=== PATIENT | female | born 1985 | race Caucasian/White ===

== ENCOUNTER 2019-04-30 09:45 | Inpatient (IN) ==
[2019-04-30] MEDS ORDERED: RINGER'S SOLUTION,LACTATED 1,000 ML IV ONE (13:17)
[2019-04-30] MEDS ORDERED: LIDOCAINE HCL 50 ML VIAL PERI PRN (13:17)
[2019-04-30] MEDS ORDERED: BUTORPHANOL TARTRATE 2 MG/ML VIAL IV PRN ×2 (13:17)
[2019-04-30] MEDS ORDERED: OXYTOCIN/DEXTROSE 5%-WATER 30 UNITS/500 ML BAG IV ONE ×2 (13:17→23:09)
[2019-04-30] MEDS ORDERED: ONDANSETRON 4 MG TAB.RAPDIS PO PRN (13:17)
[2019-04-30 14:21] LABS: Cocaine Ur Negative (NEGATIVE); Urine Barbiturate Negative (NEGATIVE); Urine Benzodiazepines Negative (NEGATIVE); Urine Opiates Negative (NEGATIVE); Urine PCP Negative (NEGATIVE); Urine THC Negative (NEGATIVE)
[2019-04-30] MEDS: RINGER'S SOLUTION,LACTATED 1,000 ML IV PRN ×2 (14:26→19:07)
--- NOTE | 2019-04-30 16:26 | HP ---
Chief Complaint - Chief Complaint Date of Service: 04/30/19 Time of Service: 16:13 Chief Complaint: Induction of labor History of Present Illness: 34 year old at 38w 2d who presents to labor and delivery for a medical induction of labor due to IUGR with normal umbilical artery dopplers. She is having regular contractions on pitocin. She denies vaginal bleeding or loss of fluid. Fetus is active. Medical History (Last Reviewed 04/30/19 @ 16:17 by Amina Espinoza MD) Anemia Onset Date: 02/06/19 w/ Anxiety Onset Date: Unknown Depression Onset Date: ~2002 age 18, not chronic; situational Surgical History: Surgical History (Last Reviewed 04/30/19 @ 16:17 by Amina Espinoza MD) Hx of hand surgery Onset Date: ~2008 right hand fracture Family History: Family History (Last Reviewed 04/30/19 @ 16:17 by Amina Espinoza MD) Mother Hepatitis C virus Father Depression Social History: (Last Reviewed 04/30/19 @ 16:17 by Amina Espinoza MD) Social History: Marital status: Single current occupational status: employed current occupation: [employer]: Yes Tobacco: Smoking Status: Current every day smoker tobacco type: cigarettes Smoking cigarettes per day: 10 Alcohol: alcohol intake: never Substance Use: substance use type: does not use Dietary Habits: caffeine: Yes Review Of Systems (GEN) - Review of Systems Generalized/Overall Review: Present: No Symptoms Reported Misc: All systems neg except as marked Allergies/Adverse Reactions: Allergies Allergy/AdvReac Type Severity Reaction Status Date / Time No Known Allergies Allergy Verified 04/30/19 08:56 Home Medications: HOME MEDICATIONS acetaminophen 500 mg tablet 500 mg PO Q6H PRN 11/28/18 [Last Taken Unknown] ferrous sulfate 325 mg (65 mg iron) tablet 325 mg PO DAILY #30 tab 02/06/19 [Last Taken Unknown] Vits96/Iron Fum/Folic [ S] 1 tab PO DAILY 04/30/19 [Last Taken Unknown] Exam - Exam Vital Signs: Vital Signs - Last Taken Temp 36.3 C 04/30/19 14:03 Pulse 102 H 04/30/19 14:03 Resp 18 04/30/19 14:03 BP 115/66 04/30/19 14:03 Pulse Ox 99 04/30/19 14:03 Constitutional: Present: Alert, Oriented x3, Cooperative, No distress ENT Exam: Present: hearing grossly normal Eye Exam: bilateral eye: normal inspection Neck: Present: normal inspection Back Exam: Present: normal inspection, no CVA tenderness, no vertebral tenderness Breasts: Present: Exam deferred Respiratory: Present: lungs clear, normal breath sounds Cardiovascular/Chest: Present: regular rate, rhythm Abdomen: Present: soft, nontender, nondistended /Rectal: Present: Other - cvx 1.5/50/-2 AROM for clear fluid Extremity: Present: non-tender, no calf tenderness Skin Exam: Present: normal color, warm/dry, no cyanosis Appearance: Present: appropriate appearance, appropriate insight Eye contact: Present: cooperative, good eye contact, normal speech Thoughts: Present: normal thought pattern Diagnostic Studies: Laboratory Results Urine Opiates Screen Negative (NEGATIVE) 04/30/19 14:11 Barbiturate Screen Negative (NEGATIVE) 04/30/19 14:11 Ur Phencyclidine Scrn Negative (NEGATIVE) 04/30/19 14:11 Urine Amphetamine Negative (NEGATIVE) 04/30/19 14:11 U Benzodiazepines Scrn Negative (NEGATIVE) 04/30/19 14:11 Urine Cocaine Screen Negative (NEGATIVE) 04/30/19 14:11 Urine Marijuana (THC) Negative (NEGATIVE) 04/30/19 14:11 Blood Type O Positive 04/30/19 14:00 Antibody Screen Negative 04/30/19 14:00 Assessment/Plan - Narrative Narrative: 34 year old at 38w 2d 1. Medical IOL for IUGR: Pitocin IOL, AROM 2. GBS negative: prophylaxis not indicated 3. Smoker: likely explains the IUGR 4. Anemia: on iron - Assessment/Plan (1) Anemia Problem: Acute Qualifiers: Anemia type: iron deficiency Iron deficiency anemia type: other iron deficiency Qualified Code(s): D50.8 - Other iron deficiency anemias (2) IUGR (intrauterine growth restriction) Problem: Acute (3) Smoker Problem: Acute
[2019-04-30] MEDS ORDERED: NALOXONE HCL 1 MG/1 ML SYRG IV PRN (18:18)
[2019-04-30] MEDS ORDERED: ONDANSETRON HCL/PF 2 MG/ML VIAL IV PRN (18:18)
[2019-04-30] MEDS ORDERED: BUPIVACAINE HCL/0.9 % NACL/PF 250 ML EP PRN (18:18)
[2019-04-30] MEDS ORDERED: fentaNYL CITRATE/PF 50 MCG/ML AMPUL IT SCH (18:30)
--- NOTE | 2019-04-30 19:37 | ANES ---
Anesthesia Pre Procedure Eval Vitals/Labs: Last Vital Signs Temp 36.3 C 04/30/19 14:03 Pulse 102 H 04/30/19 14:03 Resp 18 04/30/19 14:03 BP 115/66 04/30/19 14:03 Pulse Ox 99 04/30/19 14:03 HOME MEDICATIONS acetaminophen 500 mg tablet 500 mg PO Q6H PRN 11/28/18 [Last Taken Unknown] ferrous sulfate 325 mg (65 mg iron) tablet 325 mg PO DAILY #30 tab 02/06/19 [Last Taken Unknown] Vits96/Iron Fum/Folic [ S] 1 tab PO DAILY 04/30/19 [Last Taken Unknown] Allergies/Adverse Reactions: Allergies Allergy/AdvReac Type Severity Reaction Status Date / Time No Known Allergies Allergy Verified 04/30/19 08:56 - Planned Procedure Planned Procedure: ADMIT FOR INDUCTION Medication List Reviewed:: Yes Allergies Verified: Yes Medical History (Last Reviewed 04/30/19 @ 19:36 by Mingo Galeano CRNA) Anemia Onset Date: 02/06/19 w/ Anxiety Onset Date: Unknown Depression Onset Date: ~2002 age 18, not chronic; situational Surgical History (Last Reviewed 04/30/19 @ 19:37 by Mingo Galeano CRNA) Hx of hand surgery Onset Date: ~2008 right hand fracture Family History (Last Reviewed 04/30/19 @ 19:37 by Mingo Galeano CRNA) Mother Hepatitis C virus Father Depression - Family Anesthesia History Family History:: no untoward family reactions to anesthesia, no familial bleeding tendencies, no family history of clotting disorders, no family history of premature - Airway/Neck/Teeth Within Normal Limits:: Yes Neck Exam: full range of motion Mallampatti Score: 2 Thyromental (T-M) distance: > 6 cm Mandibulo Hyoid distance: > 3 cm - Respiratory Respiratory Physical: lungs clear Sleep Apnea currently treated: No Sleep Apnea by current assessment: No - Cardiovascular Tolerate Activity: Fair Heart Sounds: S1 & S2, Regular - Gastrointestinal NPO since: this pm - Anesthesia Assessment and Plan ASA Class: PS, II, E Anesthesia Type Plan: Epidural - CSE for labor epidural
--- NOTE | 2019-04-30 19:57 | ANES ---
Post Anesthesia Discharge - Transfer of Care Transfer of Care handoff given to nurse: Yes - Discharge from PACU Discharge from PACU when meets criteria: Yes - Comfortable post CSE.
--- NOTE | 2019-04-30 19:58 | ANES ---
Anesthesia Procedure Note Procedure Note: ANESTHESIA PROCEDURE NOTE Date of Procedure: [04/30/2019 Time of procedure: 7:35 PM. Performed by: JOSE M Bertrand CRNA, MSN Ditcher Operator: Marielena Hearn RN. Preprocedure diagnosis: Active labor, labor pain. Post procedure diagnosis: Same. Procedure:Epidural for labor analgesia L3-4. Indications: Labor pain. Findings: See below. Details of the procedure: The patient was placed on the side of the bed in sitting positionand prepped with DuraPrep then draped in a sterile fashion. Lidocaine 1% was infiltrated to the skin and subcutaneous tissues at the level of the L3-4 interspace. An 18-gauge Touhy needle was used to approach the epidural space with loss of resistance technique. Once loss of resistance was achieved a 27-gauge spinal needle was passed through the epidural needle and CSF was contacted. After CSF returned, 20 mcg of fentanyl was injected in the spinal needle was removed the epidural catheter was then threaded approximately 4 cm in the epidural needle was removed. The catheter was taped in place and after careful aspiration 3 mL of 1.5% lidocaine with 1-200,000 epinephrine was injected without change in maternal heart rate or sensorium. . EBL: Minimal. Fluids: N/A. Specimen: N/A. Post procedure condition: The patient tolerated the procedure well with good relief. No complications were noted. Thank you for this consultation. Mingo Galeano CRNA, JOSE M, MSN
--- NOTE | 2019-04-30 20:02 | ANES ---
Post Anesthesia Assessment - Vital Signs Vitals: Last Vital Signs Temp 36.3 C 04/30/19 14:03 Pulse 102 H 04/30/19 14:03 Resp 18 04/30/19 14:03 BP 115/66 04/30/19 14:03 Pulse Ox 99 04/30/19 14:03 Airway Patency: Normal - Mental Status Level Of Consciousness: Awake, Alert, Appropriate - Pain Level Pain Score: 0 - N/V Assessment Nausea/Vomiting Presence: None Dehydration:: No
--- NOTE | 2019-04-30 23:08 | OR ---
Operative Report - Dictated Report Narrative: Date of delivery: 04/30/2019 Time of delivery: 2243 grams Gender: female weight: 2571 grams APGARS: 10/30 Procedure: Description of the procedure: 34 year old at 38w 2d who underwent medical induction of labor due to IUGR with normal dopplers. She was induced with pitocin and AROM. She progressed to complete dilation. She delivered a viable female infant in MADELINE presentation. Cord clamping was delayed for 60 seconds. The cord was clamped and cut. The placenta was delivered by expression and appeared intact. A first degree perineal laceration was repaired in the usual fashion using 2-0 vicryl. EBL: 50 mL Complications: none Specimens: placenta History for Definition: * The number of deliveries resulting in a live the patient experienced prior to current hospitalization * The previous delivery of live twins or any live multiple gestation is considered one live event. *If primagravida or nulliparous is documented select zero for the number of previous live births. Live Events: 1
[2019-04-30] MEDS ORDERED: BENZOCAINE/MENTHOL 81 SPRAY CAN TP PRN (23:09)
[2019-04-30] MEDS ORDERED: SENNOSIDES 8.6 MG TABLET PO PRN (23:09)
[2019-04-30] MEDS ORDERED: diphenhydrAMINE HCL 25 MG CAPSULE PO PRN (23:09)
[2019-04-30] MEDS ORDERED: HYDROCORTISONE 30 APPL TUBE TP PRN (23:09)
[2019-04-30] MEDS ORDERED: BISACODYL 10 MG SUPP.RECT RC PRN (23:09)
[2019-04-30] MEDS ORDERED: GLYCERIN/WITCH HAZEL LEAF 40 APPL BOX TP PRN (23:09)
[2019-05-01] MEDS: IBUPROFEN 800 MG TABLET PO PRN ×3 (03:01→23:08)
[2019-05-01] MEDS: oxyCODONE HCL/ACETAMINOPHEN 1 TAB TABLET PO PRN ×3 (03:56→21:18)
[2019-05-01] MEDS: DOCUSATE SODIUM 100 MG CAPSULE PO SCH ×2 (08:09→21:18)
--- NOTE | 2019-05-01 08:59 | PN ---
Subjective - Date and Time Seen Date: 05/01/19 Time: 08:58 Subjective Narrative: Patient without complaints Objective Objective Narrative: See vitals signs - Review of Systems Generalized/Overall Review: Reports: No Symptoms Reported Misc: All systems neg except as marked - Vitals Vitals: Last Vital Signs Temp 36.5 C 05/01/19 06:25 Pulse 62 05/01/19 06:25 Resp 18 05/01/19 06:25 BP 111/63 05/01/19 06:25 Pulse Ox 97 05/01/19 06:25 - Exam Constitutional: Present: Alert, Oriented x3, Cooperative, No distress Abdomen: Present: soft, nontender, nondistended - fundus is firm Extremity: Present: non-tender, no calf tenderness Skin Exam: Present: normal color, warm/dry, no cyanosis Appearance: Present: appropriate appearance Eye contact: Present: cooperative Thoughts: Present: normal thought pattern Cauti Physician Documentation - Urinary Catheter Management Urethral (Orellana) Urethral Indwelling: No Date of Insertion: 04/30/19 Time of Insertion: 20:35 Date of Removal: 04/30/19 Time of Removal: 22:40 Assessment/Plan Plan Narrative: PPD 1 s/p Doing well Discharge tomorrow - Problems/Diagnosis (1) Anemia Problem: Acute Qualifiers: Anemia type: iron deficiency Iron deficiency anemia type: other iron deficiency Qualified Code(s): D50.8 - Other iron deficiency anemias (2) IUGR (intrauterine growth restriction) Problem: Acute (3) Smoker Problem: Acute
[2019-05-02] MEDS: oxyCODONE HCL/ACETAMINOPHEN 1 TAB TABLET PO PRN (04:38)
[2019-05-02 07:59] VITALS: BP 110/71
--- NOTE | 2019-05-02 08:45 | PN ---
Subjective - Date and Time Seen Date: 05/02/19 Time: 08:45 Subjective Narrative: Patient without complaints Objective Objective Narrative: See vitals signs - Review of Systems Generalized/Overall Review: Reports: No Symptoms Reported Misc: All systems neg except as marked - Vitals Vitals: Last Vital Signs Temp 36.9 C 05/02/19 07:25 Pulse 74 05/02/19 07:25 Resp 18 05/02/19 07:25 BP 110/71 05/02/19 07:25 Pulse Ox 98 05/02/19 07:25 - Exam Constitutional: Present: Alert, Oriented x3, Cooperative, No distress Abdomen: Present: soft, nontender, nondistended Extremity: Present: non-tender, no calf tenderness Skin Exam: Present: normal color, warm/dry, no cyanosis Appearance: Present: appropriate appearance Eye contact: Present: cooperative Thoughts: Present: normal thought pattern Cauti Physician Documentation - Urinary Catheter Management Urethral (Orellana) Urethral Indwelling: No Date of Insertion: 04/30/19 Time of Insertion: 20:35 Date of Removal: 04/30/19 Time of Removal: 22:40 Assessment/Plan Plan Narrative: PPD 2 s/p Doing well Discharge today Discharge instructions given Follow-up in 4 weeks or sooner for any other concerns - Problems/Diagnosis (1) Anemia Problem: Acute Qualifiers: Anemia type: iron deficiency Iron deficiency anemia type: other iron deficiency Qualified Code(s): D50.8 - Other iron deficiency anemias (2) IUGR (intrauterine growth restriction) Problem: Acute (3) Smoker Problem: Acute
[2019-05-02] MEDS: DOCUSATE SODIUM 100 MG CAPSULE PO SCH (08:52)
== END 2019-05-02 14:00 | disposition home or self-care (01) | DRG 807 ==
LOC: RAD 09:45 → OB 13:10
PROVIDERS: ADMIT Obstetrics & Gynecology; ATTEND Obstetrics & Gynecology
DX: Z3A.38 38 weeks gestation of pregnancy; F17.210 Nicotine dependence, cigarettes, uncomplicated; O70.0 First degree perineal laceration during delivery; O99.334 Smoking (tobacco) complicating childbirth; O99.02 Anemia complicating childbirth; O36.5930 Maternal care for other known or suspected poor fetal growth, third trimester, not applicable or unspecified; Z37.0 Single live birth
CPT/HCPCS: 59025; 76816; 76820; 80307; 86850; 88307; 88888